=== PATIENT | female | born 1985 | race Hispanic/Latino ===

== ENCOUNTER 2021-05-17 06:47 | Day surgery (SDC) | payer MEDICAID ==
[2021-05-15 13:09] LABS: BASOPHILS % (AUTO) 0.5 % (0.0-5.0); EOSINOPHILS % (AUTO) 1.6 % (0.0-8.0); HEMATOCRIT 37.9 % (36-48); LYMPHOCYTES % (AUTO) 29.6 % (21.0-51.0); MEAN CORPUSCULAR HEMOGLOBIN 27.8 pg (27.0-33.0); MEAN CORPUSCULAR HGB CONC 32.5 g/dL (32.0-36.0); MEAN CORPUSCULAR VOLUME 85.6 fL (79-99); MONOCYTES % (AUTO) 6.4 % (3.0-13.0); NEUTROPHILS % (AUTO) 61.8 % (40.0-77.0); PLATELET COUNT (AUTO) 262 K/uL (130-400); RED BLOOD CELL COUNT(AUTO) 4.43 MIL/uL (4.00-5.50); RED CELL DISTRIBUTION WIDTH 13.2 % (11.0-15.5); WHITE BLOOD COUNT (AUTO) 7.5 K/uL (4.8-10.8)
[2021-05-15 13:17] LABS: CREATININE 0.7 mg/dL (0.5-1.5); POTASSIUM 4.2 mmol/L (3.5-5.1)
[2021-05-15 13:18] LABS: INR 0.99 (0.85-1.15); PROTHROMBIN TIME 10.8 SEC (9.6-11.6)
[2021-05-15 13:20] LABS: PARTIAL THROMBOPLASTIN TIME 27.3 SEC (26.3-35.5)
[2021-05-16 10:46] VITALS: BP 134/73
[2021-05-17] VITALS (11 sets, daily range): BP systolic 112–131; BP diastolic 64–87
[~2021-05-17] VITALS: Ht 177.8 cm; Wt 89.4 kg
[2021-05-17] MEDS ORDERED: 0.9%NACL 1000ML 1,000 ML IV ONE (09:16)
[2021-05-17] MEDS ORDERED: HEPARIN 10,000 UNIT/10ML (1,000 UNIT/ML) VIAL ONE (10:08)
[2021-05-17] MEDS ORDERED: MEPERIDINE-PF 25 MG/ML SYG ONE ×3 (10:08→11:42)
[2021-05-17] MEDS ORDERED: LIDOCAINE HCL 400MG/20ML VIAL ONE (10:08)
[2021-05-17] MEDS ORDERED: MIDAZOLAM HCL 1 MG/ML 2ML VIAL ONE ×3 (10:08→11:42)
[2021-05-17] MEDS ORDERED: ISOPROTERENOL HCL 0.2 MG/ML AMP/VIAL/BAG ONE (12:27)
== END 2021-05-17 18:25 | disposition home or self-care (01) ==
LOC: DAH 06:47
PROVIDERS: ATTEND Internal Medicine Cardiovascular Disease
DX: I47.1 Supraventricular tachycardia (principal); Z20.822 Contact with and (suspected) exposure to COVID-19; Z79.01 Long term (current) use of anticoagulants; Z79.899 Other long term (current) drug therapy; Z98.890 Other specified postprocedural states
CPT/HCPCS: 36415; 71045; 80048; 84703; 85025; 85610; 85730; 87635; 93005; 93613; 93621; 93623; 93653; A4215; A4216; A4221; A4222; A4223 ×3; A4606; A4649 ×2; A4663; C1730 ×4; C1732; C1894 ×5; J1644 ×2; J2175 ×3; J2250 ×3; J3490 ×2; J7030; 99156; 99157